=== PATIENT | female | born 1995 | race African-American/Black ===

== ENCOUNTER 2016-12-28 19:12 | Emergency (ER) | payer OTHER ==
[~2016-12-28] VITALS: Ht 172.7 cm; Wt 86.4 kg
[2016-12-28 19:15] VITALS: BP 156/83; TEMP 99.3
[2016-12-28 20:14] LABS: PH 6 (5-8); URINE APPEARANCE Clear; URINE BILIRUBIN Negative (NEGATIVE); URINE BLOOD Negative (NEGATIVE); URINE COLOR Yellow; URINE GLUCOSE Negative (NEGATIVE); URINE KETONE Negative (NEGATIVE); URINE UROBILINOGEN Negative (NEGATIVE)
[2016-12-28 21:43] VITALS: PULSE 86
[2016-12-28 23:32] LABS: CHLAMYDIA/TRACH by PCR Female Not Detected; NEISSERIA GON by PCR Female Not Detected
== END 2016-12-28 21:45 | disposition home or self-care (01) ==
LOC: COL.ER 19:12
PROVIDERS: Physician Assistant Medical
DX: R10.2 Pelvic and perineal pain (principal)